=== PATIENT | male | born 1950 | race Caucasian/White ===

== ENCOUNTER 2016-12-09 10:29 | Emergency (ER) | payer MEDICARE, OTHER ==
--- NOTE | 2016-12-09 11:25 | EDM.PDOC ---
ED HPI GENERAL MEDICAL PROBLEM - General Chief Complaint: Cardiovascular Problem Stated Complaint: SENT FROM [facility] Time Seen by Provider: 12/09/16 10:40 - History of Present Illness INITIAL COMMENTS - FREE TEXT/NARRATIVE: 66-year-old male sent over from the [facility] clinic with a one and a half week history of black and tarry stools worsening shortness of breath and lower extremity edema. 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 3 weeks ago the patient had a cardiac stent placed after having a 95% blockage. It is unclear to me what triggered this evaluation however he had an abnormal stress test and subsequent cardiac catheterization. The patient was started on Plavix and aspirin in addition to his Coumadin.. He was catheterized 3 weeks ago today.the patient was started on Coumadin many years ago for what sounds like 6 or 7 lower chest and the blood clots with suspected PEs he had an IVC placed and actually plugged this up to one point. Patient noticed black and tarry stools about one and a half weeks ago. The patient has had problems with anemia in the past probably thought to be do to his chronic Coumadin use. About a week ago the patient has noticed more dyspnea with exertion and worsening lower extremity edema. Patient tried to go into the clinic today but was sent here from the clinic. Patient was due to have an INR done today, this is usually cared for by the anticoagulation clinic at [facility]. Also the patient was due to have an iron infusion today at the clinic. The patient is not having any chest pain or chest pressure at this time no shortness of breath at rest. - Related Data Allergies Allergy/AdvReac Type Severity Reaction Status Date / Time prednisone Allergy Swelling Verified 12/09/16 10:54 shellfish derived Allergy Swelling Verified 12/09/16 10:54 Home Meds: Home Meds Aspirin [Ecotrin] 81 mg PO DAILY 12/09/16 [History] Cetirizine [ZyrTEC] 10 mg PO DAILY 12/09/16 [History] Clopidogrel [Plavix] 75 mg PO DAILY 12/09/16 [History] Fluticasone/Vilanterol [Breo Ellipta 200-25 MCG Inhalation Kit] 1 inh INH DAILY 12/09/16 [History] Gabapentin [Neurontin] 300 mg PO TID 12/09/16 [History] Hydrochlorothiazide 25 mg PO DAILY 12/09/16 [History] Iron Polysaccharides Complex [Ferrex 150] 1 tab PO DAILY 12/09/16 [History] Nitroglycerin [Nitrostat] 0.4 mg PO ASDIRECTED 12/09/16 [History] Pantoprazole Sodium [Protonix] 40 mg PO DAILY 12/09/16 [History] Warfarin [Coumadin] 10 mg PO ASDIRECTED 12/09/16 [History] amLODIPine [Norvasc] 5 mg PO DAILY 12/09/16 [History] atorvaSTATin [Lipitor] 40 mg PO DAILY 12/09/16 [History] oxyCODONE HCl/Acetaminophen [Endocet 5-325 Tablet] 1 tab PO BID 12/09/16 [ History] rOPINIRole [Requip] 2 mg PO DAILY 12/09/16 [History] ED ROS GENERAL - Review of Systems Review Of Systems: See Below Constitutional: Reports: Weakness, Fatigue. Denies: Fever, Chills HEENT: Reports: No Symptoms Respiratory: Reports: Other (He does have some dyspnea with exertion). Denies: Shortness of Breath, Wheezing, Pleuritic Chest Pain, Cough Cardiovascular: Reports: Dyspnea on Exertion, Edema. Denies: Chest Pain, Blood Pressure Problem, Claudication GI/Abdominal: Reports: Melena. Denies: Hematemesis, Nausea, Vomiting : Reports: No Symptoms Neurological: Reports: No Symptoms Psychiatric: Reports: No Symptoms ED EXAM, GENERAL - Physical Exam Exam: See Below Exam Limited By: No Limitations General Appearance: Alert, No Apparent Distress, Other (He does not appear pale or diaphoretic) Eye Exam: Bilateral Eye: Normal Inspection Head: Atraumatic, Normocephalic Neck: Normal Inspection, Supple, Non-Tender, Full Range of Motion. No: Lymphadenopathy (L), Lymphadenopathy (R) Respiratory/Chest: No Respiratory Distress, Lungs Clear, Normal Breath Sounds Cardiovascular: Regular Rate, Rhythm, No Murmur GI/Abdominal: Normal Bowel Sounds, Soft, Other (Patient has some mild suprapubic and left upper quadrant discomfort with palpation) Rectal (Males) Exam: Normal Rectal Tone, Black Stool, Heme + Stool, Other (Top of the prostate not adequately evaluated. He has some enlargement no asymmetry or masses noted) Back Exam: Normal Inspection. No: CVA Tenderness (L), CVA Tenderness (R) Extremities: Normal Inspection, Other (He has some developing pitting edema) Neurological: Alert, Oriented, Normal Cognition Psychiatric: Normal Affect, Normal Mood Course - Vital Signs Last Recorded V/S: Last Vital Signs Temp 36.4 C 12/09/16 10:44 Pulse 77 12/09/16 10:44 Resp 12 12/09/16 10:44 BP 148/71 H 12/09/16 10:44 Pulse Ox 100 12/09/16 10:44 - Orders/Labs/Meds Orders: Active Orders 24 hr Category Date Time Status EKG Documentation Completion [] STAT Care 12/09/16 11:08 Active Hemoccult [Fecal Occult Blood Collection] [RC] Care 12/09/16 11:18 Active ASDIRECTED RED BLOOD CELLS LP [BBK] Stat Lab 12/09/16 11:15 Received TYPE AND SCREEN [BBK] Stat Lab 12/09/16 11:15 Received Pantoprazole [ProTONIX IV] 80 mg Med 12/09/16 11:45 Active Sodium Chloride 0.9% [Normal Saline] 100 ml IV Q10H Transfuse PRBC [Transfuse Red Blood Cells] [COMM] Stat Oth 12/09/16 11:41 Ordered Transfuse RBC [Transfuse Red Blood Cells] [COMM] Stat Ot 12/09/16 12:27 Ordered Medication Orders Pantoprazole Sodium 80 mg/ (Sodium Chloride) 100 mls @ 10 mls/hr IV Q10H [facility] PRN Reason: 8 MG/HR Last Admin: 12/09/16 12:20 Dose: 8 mg/hr, 10 mls/hr Labs: Laboratory Tests 12/09/16 12/09/16 12/09/16 Range/Units 11:15 11:15 11:15 WBC 6.07 (4.23-9.07) K/mm3 RBC 2.74 L (4.63-6.08) M/mm3 Hgb 7.2 L* (13.7-17.5) gm/L Hct 22.7 L (40.1-51.0) % MCV 82.8 (79.0-92.2) fl MCH 26.3 (25.7-32.2) pg MCHC 31.7 L (32.2-35.5) g/dl RDW Std Deviation 53.1 H (35.1-43.9) fL Plt Count 345 H (163-337) K/mm3 MPV 9.5 (9.4-12.3) fl Neutrophils % (Manual) 60 (40-60) % Band Neutrophils % 2 (0-10) % Lymphocytes % (Manual) 31 (20-40) % Atypical Lymphs % 0 % Monocytes % (Manual) 5 (2-10) % Eosinophils % (Manual) 1 (0.8-7.0) % Basophils % (Manual) 1 (0.2-1.2) Platelet Estimate Adequate Polychromasia 1+ slight Hypochromasia 1+ slight Anisocytosis 1+ slight RBC Morph Comment Not Reportable PT 27.2 H (8.0-13.0) SECONDS INR 2.36 APTT 32 (22-36) SECONDS Sodium 132 L (136-145) mEq/L Potassium 3.8 (3.5-5.1) mEq/L Chloride 98 (98-107) mEq/L Carbon Dioxide 24 (21-32) mEq/L Anion Gap 13.8 (5-15) BUN 16 (7-18) mg/dL Creatinine 1.2 (0.7-1.3) mg/dL Est Cr Clr Drug Dosing 69.45 mL/min Estimated GFR (MDRD) > 60 (>60) mL/min BUN/Creatinine Ratio 13.3 L (14-18) Glucose 105 (80-115) mg/dL Calcium 8.9 (8.5-10.1) mg/dL Total Bilirubin 0.4 (0.2-1.0) mg/dL AST 32 (15-37) U/L ALT 32 (16-63) U/L Alkaline Phosphatase 54 (46-116) U/L Troponin I 0.018 (0.00-0.056) ng/mL B-Natriuretic Peptide (0-100) pg/mL Total Protein 7.2 (6.4-8.2) g/dl Albumin 3.4 (3.4-5.0) g/dl Globulin 3.8 gm/dL Albumin/Globulin Ratio 0.9 L (1-2) 05/25/17 Range/Units 11:15 WBC (4.23-9.07) K/mm3 RBC (4.63-6.08) M/mm3 Hgb (13.7-17.5) gm/L Hct (40.1-51.0) % MCV (79.0-92.2) fl MCH (25.7-32.2) pg MCHC (32.2-35.5) g/dl RDW Std Deviation (35.1-43.9) fL Plt Count (163-337) K/mm3 MPV (9.4-12.3) fl Neutrophils % (Manual) (40-60) % Band Neutrophils % (0-10) % Lymphocytes % (Manual) (20-40) % Atypical Lymphs % % Monocytes % (Manual) (2-10) % Eosinophils % (Manual) (0.8-7.0) % Basophils % (Manual) (0.2-1.2) Platelet Estimate Polychromasia Hypochromasia Anisocytosis RBC Morph Comment PT (8.0-13.0) SECONDS INR APTT (22-36) SECONDS Sodium (136-145) mEq/L Potassium (3.5-5.1) mEq/L Chloride (98-107) mEq/L Carbon Dioxide (21-32) mEq/L Anion Gap (5-15) BUN (7-18) mg/dL Creatinine (0.7-1.3) mg/dL Est Cr Clr Drug Dosing mL/min Estimated GFR (MDRD) (>60) mL/min BUN/Creatinine Ratio (14-18) Glucose (80-115) mg/dL Calcium (8.5-10.1) mg/dL Total Bilirubin (0.2-1.0) mg/dL AST (15-37) U/L ALT (16-63) U/L Alkaline Phosphatase (46-116) U/L Troponin I (0.00-0.056) ng/mL B-Natriuretic Peptide 183 H (0-100) pg/mL Total Protein (6.4-8.2) g/dl Albumin (3.4-5.0) g/dl Globulin gm/dL Albumin/Globulin Ratio (1-2) Meds: Medications Generic Name Dose Route Start Last Admin Trade Name Freq PRN Reason Stop Dose Admin Pantoprazole Sodium 80 mg/ 100 mls @ 10 mls/hr 12/09/16 11:45 12/09/16 12:20 Sodium Chloride IV 8 mg/hr Q10H [facility] 10 mls/hr 8 MG/HR Administration Discontinued Medications Generic Name Dose Route Start Last Admin Trade Name Rickey PRN Reason Stop Dose Admin Sodium Chloride Confirm 12/09/16 12:18 Normal Saline Administered 12/09/16 12:19 Dose 1,000 mls @ as directed .ROUTE .STK-MED ONE Pantoprazole Sodium 80 mg 12/09/16 11:36 12/09/16 11:56 Protonix Iv IVPUSH 12/09/16 11:37 80 mg .BOLUS ONE Administration - Re-Assessments/Exams Free Text/Narrative Re-Assessment/Exam: 12/09/16 11:56 The patient's hemoglobin is 7.2 hematocrit 22.7 INR is elevated but within therapeutic ranges from being on Coumadin. Troponin negative BNP slightly elevated. EKG shows a right bundle branch block first degree AV block no acute ST-T wave changes. Patient's Hemoccult was grossly positive. He's been started on Protonix 80 mg as well as Protonix drip. I have called [facility] anticipating transfer. They are busy at this time but will get back to me.case discussed with our hospitalist who believes the patient should be transferred to a higher level of care. 12/09/16 12:[address] Lim, hospitalist at [facility] in [place]. She agrees on the transfusion of one unit the Protonix and accept the patient in transfer. Departure - Departure Time of Disposition: 11:54 Disposition: DC/Tfer to [facility] 02 Clinical Impression: Gastrointestinal hemorrhage, Anemia, Coagulopathy - Discharge Information Referrals: Ariela Linder, CLINICAL OUTCOMES MANAGER [Primary Care Provider] - - My Orders Last 24 Hours: My Active Orders 12/09/16 11:08 EKG Documentation Completion [RC] STAT 12/09/16 11:15 RED BLOOD CELLS LP [BBK] Stat TYPE AND SCREEN [BBK] Stat 12/09/16 11:18 Hemoccult [Fecal Occult Blood Collection] [RC] ASDIRECTED 12/09/16 11:41 Transfuse PRBC [Transfuse Red Blood Cells] [COMM] Stat 12/09/16 11:45 Pantoprazole [ProTONIX IV] 80 mg Sodium Chloride 0.9% [Normal Saline] 100 ml IV Q10H 12/09/16 12:27 Transfuse RBC [Transfuse Red Blood Cells] [COMM] Stat - Assessment/Plan Last 24 Hours: My Active Orders 12/09/16 11:08 EKG Documentation Completion [RC] STAT 12/09/16 11:15 RED BLOOD CELLS LP [BBK] Stat TYPE AND SCREEN [BBK] Stat 12/09/16 11:18 Hemoccult [Fecal Occult Blood Collection] [RC] ASDIRECTED 12/09/16 11:41 Transfuse PRBC [Transfuse Red Blood Cells] [COMM] Stat 12/09/16 11:45 Pantoprazole [ProTONIX IV] 80 mg Sodium Chloride 0.9% [Normal Saline] 100 ml IV Q10H 12/09/16 12:27 Transfuse RBC [Transfuse Red Blood Cells] [COMM] Stat
[2016-12-09] MEDS ORDERED: Pantoprazole 40 MG Vial IVPUSH ONE (11:36)
[2016-12-09] MEDS ORDERED: Pantoprazole 80 MG in Sodium Chloride 0.9% 100 ML IV SCH (11:45)
[2016-12-09] MEDS ORDERED: Sodium Chloride 0.9% 1,000 ML ONE (12:18)
--- NOTE | 2016-12-09 12:26 | CR ---
Chest: Portable view of the chest was obtained. Comparison: Previous chest x-ray of 11/25/12. Chronic blunting of the right lateral costophrenic angle is seen. Several old right-sided rib fractures are seen. No acute infiltrates are seen. Heart size and mediastinum are normal. Impression: 1. Several old healed right-sided rib fractures. Pleural thickening within the right lateral costophrenic angle which appears to be chronic. 2. Nothing acute is appreciated on portable chest x-ray. Diagnostic code #2
[2016-12-09] MEDS ORDERED: Furosemide 20 MG/2 ML VIAL IVPUSH ONE (12:43)
[2016-12-09] MEDS ORDERED: Potassium Chloride 10 MEQ in Premix Bag 1 BAG IV ONE (12:45)
[2016-12-09 13:51] VITALS: BP 174/62
== END 2016-12-09 13:52 ==
LOC: JD.ED 10:29
DX: K92.2 Gastrointestinal hemorrhage, unspecified (principal); D64.9 Anemia, unspecified; D68.9 Coagulation defect, unspecified; Z79.82 Long term (current) use of aspirin; Z79.899 Other long term (current) drug therapy; Z79.01 Long term (current) use of anticoagulants; Z91.013 Allergy to seafood; Z88.8 Allergy status to other drugs, medicaments and biological substances
CPT/HCPCS: 36415; 36430; 71010; 80053; 82270; 83880; 84484; 85025; 85610; 85730; 86850; 86900; 86901; 86922; 93005; 96360; 96365; 96368; 96375; 96376; 99285; A9270; C9113; J3480; J7030; J7040; P9016; 99284

== ENCOUNTER 2017-01-22 21:05 | Emergency (ER) | payer MEDICARE, OTHER ==
--- NOTE | 2017-01-22 21:42 | EDM.PDOC ---
ED HPI GENERAL MEDICAL PROBLEM - General Chief Complaint: Syncope Stated Complaint: [facility] Time Seen by Provider: 01/22/17 21:10 Source of Information: Reports: Patient History Limitations: Reports: No Limitations - History of Present Illness INITIAL COMMENTS - FREE TEXT/NARRATIVE: This is a 66-year-old male. He was in the garage this afternoon sitting and having a few beers. He got up and walked up 3 steps and reached up to close the garage door and he passed out. He states he doesn't remember anything he just passed out. He had no nausea when this occurred no sweating no flushing no chest pain. When he woke up he says there was no lag time and he knew exactly what had happened and he told his he felt okay. When EMS arrived he was alert and oriented, he was on 94% oxygen by room air blood pressure is 108/69. He denies any headache he denies any neck pain or back pain. He does have some skin tears on his upper extremities and he has a large hematoma in his left lower extremity lateral calf. He says he feels fine right now. He does have a history of high blood pressure he is taking a beta lydia. He also has a history of blood clots in his legs and he is on Coumadin and Plavix. His last INR was yesterday and it was 4 something. He does complain of some right lateral rib pain but denies any other acute symptoms of his upper or lower extremities. He does have a history of feeling very lightheaded sometimes when he stands up but no recent syncope like today. Bilateral Hand Pain Score (Numeric/FACES): 4 - Related Data Allergies Allergy/AdvReac Type Severity Reaction Status Date / Time prednisone Allergy Swelling Verified 12/09/16 10:54 shellfish derived Allergy Swelling Verified 12/09/16 10:54 Home Meds: Home Meds Cetirizine [ZyrTEC] 10 mg PO DAILY 12/09/16 [History] Clopidogrel [Plavix] 75 mg PO DAILY 12/09/16 [History] Fluticasone/Vilanterol [Breo Ellipta 200-25 MCG Inhalation Kit] 1 puff INH DAILY 12/09/16 [History] Gabapentin [Neurontin] 300 mg PO TID 12/09/16 [History] Iron Polysaccharides Complex [Ferrex 150] 1 tab PO BID 12/09/16 [History] Nitroglycerin [Nitrostat] 0.4 mg PO ASDIRECTED 12/09/16 [History] Pantoprazole Sodium [Protonix] 40 mg PO DAILY 12/09/16 [History] Warfarin [Coumadin] 10 mg PO ASDIRECTED 12/09/16 [History] amLODIPine [Norvasc] 5 mg PO DAILY 12/09/16 [History] atorvaSTATin [Lipitor] 40 mg PO DAILY 12/09/16 [History] Acetaminophen/oxyCODONE [Percocet 325-5 MG] 1 tab PO BID 01/22/17 [History] Furosemide [Lasix] 40 mg PO DAILY 01/22/17 [History] Ipratropium/Albuterol Sulfate [Combivent Respimat Inhal [place]] 1 puff INH TID PRN 01/22/17 [History] Metoprolol Succinate [Toprol XL] 50 mg PO DAILY 01/22/17 [History] Past Medical History Cardiovascular History: Reports: CAD, Hypertension Other Cardiovascular History: IVC filter since 2005 Respiratory History: Reports: SOB Gastrointestinal History: Reports: GERD, Hemorrhoids - Past Surgical History HEENT Surgical History: Reports: Tonsillectomy Other Cardiovascular Surgeries/Procedures: cardiac stent x1 GI Surgical History: Reports: Colonoscopy Musculoskeletal Surgical History: Reports: Joint Replacement Other Musculoskeletal Surgeries/Procedures:: left hip Social & Family History - Tobacco Use Smoking Status *Q: Current Every Day Smoker Years of Tobacco use: 30 Packs/Tins Daily: 1 - Caffeine Use Caffeine Use: Reports: Coffee - Alcohol Use Days Per Week of Alcohol Use: 7 Number of Drinks Per Day: 2 Total Drinks Per Week: 14 - Recreational Drug Use Recreational Drug Use: No ED ROS GENERAL - Review of Systems Review Of Systems: See Below Constitutional: Denies: Fever, Chills HEENT: Reports: No Symptoms Respiratory: Reports: No Symptoms Cardiovascular: Denies: Chest Pain Endocrine: Reports: No Symptoms GI/Abdominal: Denies: Abdominal Pain, Nausea, Vomiting : Reports: No Symptoms Musculoskeletal: Reports: Other (As per history of present illness) Skin: Reports: Other (As per history of present illness) Neurological: Reports: Syncope. Denies: Confusion, Dizziness, Headache, Trouble Speaking, Weakness Psychiatric: Reports: No Symptoms Hematologic/Lymphatic: Reports: No Symptoms Immunologic: Reports: No Symptoms - Physical Exam Exam: See Below Exam Limited By: No Limitations General Appearance: Alert, WD/WN, No Apparent Distress Ears: Normal External Exam, Normal Canal, Other (Only partial TMs can be seen due to cerumen and they appear to be normal) Nose: Normal Inspection Throat/Mouth: Normal Inspection, Normal Lips, Normal Voice, No Airway Compromise Head Exam: Atraumatic, Normocephalic, Other (There are no abrasions or hematomas to the scalp noted and he denies any pain on palpation of the scalp) Neck: Normal Inspection, Supple, Non-Tender, Full Range of Motion Respiratory/Chest: No Respiratory Distress, Lungs Clear, Other (He has tenderness around rib #5 and 6 laterally on palpation but I do not feel any crepitus at this time, the left ribs are nontender) Cardiovascular: Regular Rate, Rhythm, No Murmur GI/Abdominal: Soft, Non-Tender Neuro Exam (Abbreviated): Alert, Oriented, No Motor/Sensory Deficits Back Exam: Normal Inspection, Full Range of Motion, Other (Patient denies any thoracic or lumbar tenderness on palpation or movement) Extremities: Normal Range of Motion, Other (His right upper extremity has a skin abrasion tear on the dorsal right hand, the left upper extremity has a skin tear on the dorsal of the left hand and also contusions on his forearm and elbow, the lower extremities on the right is atraumatic the one on the left has a large hematoma about the size of a small range on the lateral calf area, pulses are intact distally to the hematoma, he denies any shoulder injury he denies any hip knee ankle or foot pain with movement) Psychiatric: Normal Affect, Normal Mood Skin Exam: Warm, Dry EKG INTERPRETATION EKG Date: 01/22/17 Time: 09:46 Rhythm: NSR EKG Interpretation Comments: 1 degree AV block, 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, no acute ST or T-wave changes and no ischemic changes are noted Course - Vital Signs Last Recorded V/S: Last Vital Signs Temp 97.4 F 01/22/17 21:10 Pulse 73 01/22/17 21:10 Resp 20 01/22/17 21:10 BP 113/69 01/22/17 21:10 Pulse Ox 96 01/22/17 21:10 - Orders/Labs/Meds Orders: Active Orders 24 hr Category Date Time Status EKG 12 Lead [EKG Documentation Completion] [RC] STAT Care 01/22/17 21:34 Active Ribs 2V w Chest Rt [CR] Stat Exams 01/22/17 21:34 Taken Labs: Laboratory Tests 01/22/17 01/22/17 01/22/17 Range/Units 21:45 21:45 21:45 WBC 6.80 (4.23-9.07) K/mm3 RBC 4.15 L (4.63-6.08) M/mm3 Hgb 11.9 L (13.7-17.5) gm/L Hct 36.0 L (40.1-51.0) % MCV 86.7 (79.0-92.2) fl MCH 28.7 (25.7-32.2) pg MCHC 33.1 (32.2-35.5) g/dl RDW Std Deviation 74.0 H (35.1-43.9) fL Plt Count 252 (163-337) K/mm3 MPV 10.3 (9.4-12.3) fl Neut % (Auto) 59.0 (34.0-67.9) % Lymph % (Auto) 27.6 (21.8-53.1) % Dixon % (Auto) 9.9 (5.3-12.2) % Eos % (Auto) 2.5 (0.8-7.0) Baso % (Auto) 0.9 (0.1-1.2) % Neut # (Auto) 4.01 (1.78-5.38) K/mm3 Lymph # (Auto) 1.88 (1.32-3.57) K/mm3 Dixon # (Auto) 0.67 (0.30-0.82) K/mm3 Eos # (Auto) 0.17 (0.04-0.54) K/mm3 Baso # (Auto) 0.06 (0.01-0.08) K/mm3 PT 48.0 H (8.0-13.0) SECONDS INR 4.03 Sodium 136 (136-145) mEq/L Potassium 3.5 (3.5-5.1) mEq/L Chloride 101 (98-107) mEq/L Carbon Dioxide 19 L (21-32) mEq/L Anion Gap 19.5 H (5-15) BUN 15 (7-18) mg/dL Creatinine 1.6 H (0.7-1.3) mg/dL Est Cr Clr Drug Dosing TNP Estimated GFR (MDRD) 43 (>60) mL/min BUN/Creatinine Ratio 9.4 L (14-18) Glucose 97 (80-115) mg/dL Calcium 8.7 (8.5-10.1) mg/dL Total Bilirubin 0.3 (0.2-1.0) mg/dL AST 91 H (15-37) U/L ALT 67 H (16-63) U/L Alkaline Phosphatase 49 (46-116) U/L Troponin I < 0.017 (0.00-0.056) ng/mL Total Protein 6.8 (6.4-8.2) g/dl Albumin 3.5 (3.4-5.0) g/dl Globulin 3.3 gm/dL Albumin/Globulin Ratio 1.1 (1-2) - Re-Assessments/Exams Free Text/Narrative Re-Assessment/Exam: 01/22/17 22:58 I spoke to the patient regarding his blood work INR is renal insufficiency his mildly elevated liver enzymes and his rib fractures. Departure - Departure Time of Disposition: 23:00 Disposition: Home, Self-Care 01 Condition: Fair Clinical Impression: Multiple skin tears, Elevated liver enzymes, Elevated INR, Multiple bruises, Syncope and collapse, Orthostatic hypotension Right rib fracture Qualifiers: Encounter type: initial encounter Rib fracture type: multiple ribs Fracture type: closed Qualified Code(s): S22.41XA - Multiple fractures of ribs, right side, initial encounter for closed fracture Hematoma of left lower extremity Qualifiers: Encounter type: initial encounter Qualified Code(s): S80.12XA - Contusion of left lower leg, initial encounter - Discharge Information Referrals: Ariela Linder, FUNERAL HOME DIRECTOR [Primary Care Provider] - Forms: ED Department Discharge Additional Instructions: Continue to ice down the hematoma on your left lower leg as well as the various bruises for the next 48 hours, keep the skin tears clean and dry and covered until they develop a scab, continue regular medications, gentle activity due to the right rib fractures, remember that when you get up from sitting take a moment to stand still before you decide to walk in case you have another dizzy or syncopal episode, follow-up with your family physician this week and return to the ER if needed - My Orders Last 24 Hours: My Active Orders 01/22/17 21:34 EKG 12 Lead [EKG Documentation Completion] [RC] STAT Ribs 2V w Chest Rt [CR] Stat - Assessment/Plan Last 24 Hours: My Active Orders 01/22/17 21:34 EKG 12 Lead [EKG Documentation Completion] [RC] STAT Ribs 2V w Chest Rt [CR] Stat
[2017-01-23 00:27] VITALS: BP 141/88
--- NOTE | 2017-01-24 08:15 | CR ---
Chest and right ribs: Frontal view of the chest was obtained as well as three views of the right ribs. Comparison: Previous chest x-ray of 12/09/16. Multiple right-sided rib fractures are seen which appear to be old and appears stable from previous exam. Chronic pleural thickening is seen along the right lateral chest wall and right lateral costophrenic angle. No acute infiltrates are seen. Heart size and mediastinum are within normal limits. Mild scoliosis is present within the spine. Impression: 1. Multiple old appearing right-sided rib fractures. Associated pleural thickening is seen which is chronic. 2. Nothing acute is appreciated within the right ribs. 3. Nothing acute is seen on accompanying chest x-ray. Diagnostic code #2
== END 2017-01-22 23:25 | disposition home or self-care (01) ==
LOC: JD.ED 21:05 → SUPCPDRO 21:05 → JD.ED 23:25
DX: S22.41XA Multiple fractures of ribs, right side, initial encounter for closed fracture (principal); S61.412A Laceration without foreign body of left hand, initial encounter; S80.12XA Contusion of left lower leg, initial encounter; S50.12XA Contusion of left forearm, initial encounter; S50.02XA Contusion of left elbow, initial encounter; I95.1 Orthostatic hypotension; R79.89 Other specified abnormal findings of blood chemistry; R79.1 Abnormal coagulation profile; I10 Essential (primary) hypertension; F17.210 Nicotine dependence, cigarettes, uncomplicated; K21.9 Gastro-esophageal reflux disease without esophagitis; I25.10 Atherosclerotic heart disease of native coronary artery without angina pectoris; Z91.013 Allergy to seafood; Z88.8 Allergy status to other drugs, medicaments and biological substances; Z79.899 Other long term (current) drug therapy; Z79.01 Long term (current) use of anticoagulants; Z98.890 Other specified postprocedural states; S30.1XXA Contusion of abdominal wall, initial encounter; W10.9XXA Fall (on) (from) unspecified stairs and steps, initial encounter; Y92.59 Other trade areas as the place of occurrence of the external cause
CPT/HCPCS: 36415; 71101-26-RT; 71101-RT; 80053; 84484; 85025; 85610; 93005; 99284; 99285-25

== ENCOUNTER 2017-02-15 14:42 | Emergency (ER) | payer MEDICARE, OTHER ==
[2017-02-15 15:06] VITALS: BP 164/74
[2017-02-15] MEDS ORDERED: Sodium Chloride 0.9% 10 ML Syringe FLUSH PRN (15:21)
--- NOTE | 2017-02-15 15:58 | EDM.PDOC ---
ED HPI GENERAL MEDICAL PROBLEM - General Chief Complaint: Cardiovascular Problem Stated Complaint: SENT FROM [facility] FOR HEART Time Seen by Provider: 02/15/17 15:06 Source of Information: Reports: Patient, RN Notes Reviewed - History of Present Illness INITIAL COMMENTS - FREE TEXT/NARRATIVE: 66 year old male sent over from clinic to be sent to [facility] for pacemaker. He has been having frequent dizzy spells for several months or more , passed out a few weeks ago with resultant fractured ribs, huge hematoma L lower leg, still not completely resolved. He has hx of Htn, CAD, had a stent placed several months ago, on plavix and coumadin in addition to other meds. He has been having dizzy spells almost daily, usually can sit or lie down until it passes. Last night he passed out walking in his garden, no injury. He passed out again 2:30 this morning going to the bathroom. Very little warning. He states he would start to feel a bit light headed, than would wake up on the ground or on the floor. No chest pain recently. Occasional dyspnea. No recent abd pain, nausea, vomting or other unusual sx. - Related Data Allergies Allergy/AdvReac Type Severity Reaction Status Date / Time prednisone Allergy Swelling Verified 02/15/17 15:06 shellfish derived Allergy Swelling Verified 02/15/17 15:06 Home Meds: Home Meds Cetirizine [ZyrTEC] 10 mg PO DAILY 12/09/16 [History] Clopidogrel [Plavix] 75 mg PO DAILY 12/09/16 [History] Fluticasone/Vilanterol [Breo Ellipta 200-25 MCG Inhalation Kit] 1 puff INH DAILY 12/09/16 [History] Gabapentin [Neurontin] 300 mg PO BEDTIME 12/09/16 [History] Nitroglycerin [Nitrostat] 0.4 mg PO ASDIRECTED 12/09/16 [History] Pantoprazole Sodium [Protonix] 40 mg PO DAILY 12/09/16 [History] Warfarin [Coumadin] 7.5 mg PO ASDIRECTED 12/09/16 [History] Acetaminophen/oxyCODONE [Percocet 325-5 MG] 1 tab PO BID 01/22/17 [History] Furosemide [Lasix] 20 mg PO DAILY 01/22/17 [History] Ipratropium/Albuterol Sulfate [Combivent Respimat Inhal [place]] 1 puff INH TID [History] Metoprolol Succinate [Toprol XL] 50 mg PO DAILY 01/22/17 [History] Past Medical History Cardiovascular History: Reports: CAD, Hypertension Other Cardiovascular History: IVC filter since 2005 Respiratory History: Reports: SOB Gastrointestinal History: Reports: GERD, Hemorrhoids - Past Surgical History HEENT Surgical History: Reports: Tonsillectomy Other Cardiovascular Surgeries/Procedures: cardiac stent x1 GI Surgical History: Reports: Colonoscopy Musculoskeletal Surgical History: Reports: Joint Replacement Other Musculoskeletal Surgeries/Procedures:: left hip Social & Family History - Tobacco Use Smoking Status *Q: Unknown Ever Smoked Years of Tobacco use: 30 Packs/Tins Daily: 1 - Caffeine Use Caffeine Use: Reports: Coffee - Alcohol Use Days Per Week of Alcohol Use: 7 Number of Drinks Per Day: 2 Total Drinks Per Week: 14 - Recreational Drug Use Recreational Drug Use: No ED ROS GENERAL - Review of Systems Review Of Systems: See Below Constitutional: Denies: Fever, Chills HEENT: Denies: Throat Pain Respiratory: Reports: Shortness of Breath. Denies: Pleuritic Chest Pain, Cough Cardiovascular: Denies: Chest Pain GI/Abdominal: Denies: Abdominal Pain, Nausea, Vomiting Musculoskeletal: Reports: Leg Pain (still having pain area of large hematoma L lower ant leg. ). Denies: Neck Pain, Shoulder Pain Skin: Reports: Bruising (multiple areas of bruising) Neurological: Reports: Dizziness (frequent). Denies: Tingling, Trouble Speaking , Difficulty Walking, Weakness ED EXAM, GENERAL - Physical Exam Exam: See Below General Appearance: Alert, No Apparent Distress Eye Exam: Bilateral Eye: PERRL Throat/Mouth: Normal Inspection, Normal Oropharynx Head: Atraumatic. No: Facial Swelling Neck: Supple, Full Range of Motion Respiratory/Chest: No Respiratory Distress, Lungs Clear, Normal Breath Sounds Cardiovascular: Regular Rate, Rhythm GI/Abdominal: Soft, Non-Tender. No: Guarding Back Exam: No: CVA Tenderness (L), CVA Tenderness (R), Vertebral Tenderness Extremities: Leg Pain (large hematoma L lower ant leg. ) Neurological: No Motor/Sensory Deficits Skin Exam: Warm, Dry, Normal Color, Ecchymosis (multiple areas of bruising, especially R back, R arm, L lower ant leg) Course - Vital Signs Last Recorded V/S: Last Vital Signs Temp 98.5 F 02/15/17 15:03 Pulse 63 02/15/17 15:03 Resp 18 02/15/17 15:03 BP 164/74 H 02/15/17 15:03 Pulse Ox 100 02/15/17 15:03 - Orders/Labs/Meds Orders: Active Orders 24 hr Category Date Time Status EKG 12 Lead [EKG Documentation Completion] [RC] STAT Care 02/15/17 15:20 Active Peripheral IV Care [RC] . DIRECTED Care 02/15/17 15:21 Active Chest 1V Frontal [CR] Stat Exams 02/15/17 15:21 Taken Sodium Chloride 0.9% [Saline Flush] Med 02/15/17 15:21 Active 10 ml FLUSH ASDIRECTED PRN Peripheral IV Insertion Adult [OM.PC] Stat Oth 02/15/17 15:20 Ordered Medication Orders Sodium Chloride (Saline Flush) 10 ml FLUSH ASDIRECTED PRN PRN Reason: Keep Vein Open Last Admin: 02/15/17 15:20 Dose: 10 ml Labs: Laboratory Tests 02/15/17 02/15/17 02/15/17 Range/Units 15:34 15:34 15:34 WBC 7.86 (4.23-9.07) K/mm3 RBC 4.41 L (4.63-6.08) M/mm3 Hgb 13.1 L (13.7-17.5) gm/L Hct 39.9 L (40.1-51.0) % MCV 90.5 (79.0-92.2) fl MCH 29.7 (25.7-32.2) pg MCHC 32.8 (32.2-35.5) g/dl RDW Std Deviation 72.4 H (35.1-43.9) fL Plt Count 330 (163-337) K/mm3 MPV 10.3 (9.4-12.3) fl Neut % (Auto) 62.6 (34.0-67.9) % Lymph % (Auto) 26.6 (21.8-53.1) % [place] % (Auto) 8.4 (5.3-12.2) % Eos % (Auto) 1.3 (0.8-7.0) Baso % (Auto) 0.8 (0.1-1.2) % Neut # (Auto) 4.93 (1.78-5.38) K/mm3 Lymph # (Auto) 2.09 (1.32-3.57) K/mm3 [place] # (Auto) 0.66 (0.30-0.82) K/mm3 Eos # (Auto) 0.10 (0.04-0.54) K/mm3 Baso # (Auto) 0.06 (0.01-0.08) K/mm3 PT 35.0 H (8.0-13.0) SECONDS INR 2.99 Sodium 138 (136-145) mEq/L Potassium 3.8 (3.5-5.1) mEq/L Chloride 103 (98-107) mEq/L Carbon Dioxide 25 (21-32) mEq/L Anion Gap 13.8 (5-15) BUN 11 (7-18) mg/dL Creatinine 1.4 H (0.7-1.3) mg/dL Est Cr Clr Drug Dosing TNP Estimated GFR (MDRD) 51 (>60) mL/min BUN/Creatinine Ratio 7.9 L (14-18) Glucose 121 H (80-115) mg/dL Calcium 9.4 (8.5-10.1) mg/dL Total Bilirubin 0.5 (0.2-1.0) mg/dL AST 39 H (15-37) U/L ALT 41 (16-63) U/L Alkaline Phosphatase 77 (46-116) U/L B-Natriuretic Peptide (0-100) pg/mL Total Protein 7.5 (6.4-8.2) g/dl Albumin 3.5 (3.4-5.0) g/dl Globulin 4.0 gm/dL Albumin/Globulin Ratio 0.9 L (1-2) 02/15/17 Range/Units 15:34 WBC (4.23-9.07) K/mm3 RBC (4.63-6.08) M/mm3 Hgb (13.7-17.5) gm/L Hct (40.1-51.0) % MCV (79.0-92.2) fl MCH (25.7-32.2) pg MCHC (32.2-35.5) g/dl RDW Std Deviation (35.1-43.9) fL Plt Count (163-337) K/mm3 MPV (9.4-12.3) fl Neut % (Auto) (34.0-67.9) % Lymph % (Auto) (21.8-53.1) % [place] % (Auto) (5.3-12.2) % Eos % (Auto) (0.8-7.0) Baso % (Auto) (0.1-1.2) % Neut # (Auto) (1.78-5.38) K/mm3 Lymph # (Auto) (1.32-3.57) K/mm3 [place] # (Auto) (0.30-0.82) K/mm3 Eos # (Auto) (0.04-0.54) K/mm3 Baso # (Auto) (0.01-0.08) K/mm3 PT (8.0-13.0) SECONDS INR Sodium (136-145) mEq/L Potassium (3.5-5.1) mEq/L Chloride (98-107) mEq/L Carbon Dioxide (21-32) mEq/L Anion Gap (5-15) BUN (7-18) mg/dL Creatinine (0.7-1.3) mg/dL Est Cr Clr Drug Dosing Estimated GFR (MDRD) (>60) mL/min BUN/Creatinine Ratio (14-18) Glucose (80-115) mg/dL Calcium (8.5-10.1) mg/dL Total Bilirubin (0.2-1.0) mg/dL AST (15-37) U/L ALT (16-63) U/L Alkaline Phosphatase (46-116) U/L B-Natriuretic Peptide 436 H (0-100) pg/mL Total Protein (6.4-8.2) g/dl Albumin (3.4-5.0) g/dl Globulin gm/dL Albumin/Globulin Ratio (1-2) Meds: Medications Generic Name Dose Route Start Last Admin Trade Name Freq PRN Reason Stop Dose Admin Sodium Chloride 10 ml 02/15/17 15:21 02/15/17 15:20 Saline Flush FLUSH 10 ml ASDIRECTED PRN Administration Keep Vein Open - Re-Assessments/Exams Free Text/Narrative Re-Assessment/Exam: 02/15/17 17:36. NSR here in the ED, no significant pauses, EKG does show first degree block and RBBB. He needs a pacemaker. He did have an appt. to see Dr Washington tomorrow. He has been notified. Requesting patient be admitted to Hospitalist this afternoon/evening. Will place pacemaker tomorrow. Dr Bustamante, Hospitalist accepting Phys. Departure - Departure Time of Disposition: 16:30 Disposition: DC/Tfer to Acute Hospital 02 Reason for Transfer *Q: Other Condition: Serious Clinical Impression: Sick sinus syndrome Forms: ED Department Discharge - My Orders Last 24 Hours: My Active Orders 02/15/17 15:20 EKG 12 Lead [EKG Documentation Completion] [RC] STAT Peripheral IV Insertion Adult [OM.PC] Stat 02/15/17 15:21 Peripheral IV Care [RC] . DIRECTED Chest 1V Frontal [CR] Stat Sodium Chloride 0.9% [Saline Flush] 10 ml FLUSH ASDIRECTED PRN - Assessment/Plan Last 24 Hours: My Active Orders 02/15/17 15:20 EKG 12 Lead [EKG Documentation Completion] [RC] STAT Peripheral IV Insertion Adult [OM.PC] Stat 02/15/17 15:21 Peripheral IV Care [RC] . DIRECTED Chest 1V Frontal [CR] Stat Sodium Chloride 0.9% [Saline Flush] 10 ml FLUSH ASDIRECTED PRN
--- NOTE | 2017-02-15 18:05 | CR ---
Chest: Portable view of the chest was obtained. Comparison: Previous chest x-ray of 01/22/17. Blunting of the lateral costophrenic angles are seen which appears chronic. Stable right-sided rib fractures are seen. Lungs are clear with no acute infiltrates. Heart size and mediastinum are within normal limits. Slight scoliosis is present within the spine. Impression: 1. Stable findings as described above. Nothing acute is appreciated on portable chest x-ray. Diagnostic code #2
== END 2017-02-15 17:08 ==
LOC: JD.ED 14:42 → SUPCPDRO 14:42 → JD.ED 17:08
DX: I49.5 Sick sinus syndrome (principal); I10 Essential (primary) hypertension; I25.10 Atherosclerotic heart disease of native coronary artery without angina pectoris; K21.9 Gastro-esophageal reflux disease without esophagitis; Z98.890 Other specified postprocedural states; Z95.5 Presence of coronary angioplasty implant and graft; Z96.649 Presence of unspecified artificial hip joint; Z79.02 Long term (current) use of antithrombotics/antiplatelets; Z79.899 Other long term (current) drug therapy; Z88.8 Allergy status to other drugs, medicaments and biological substances; Z91.013 Allergy to seafood; R06.02 Shortness of breath
CPT/HCPCS: 36415; 71010; 80053; 83880; 85025; 85610; 93005; 99285; J7050; 99284

== ENCOUNTER 2019-06-18 15:58 | Emergency (ER) | payer MEDICARE, OTHER ==
[2019-06-18] MEDS ORDERED: Ondansetron 4 MG/2 ML SDV IVPUSH ONE (16:29)
[2019-06-18] MEDS ORDERED: HYDROmorphone 0.5 MG/0.5 ML Syringe IVPUSH ONE ×2 (16:29→21:22)
[2019-06-18] MEDS ORDERED: Sodium Chloride 0.9% 1,000 ML IV SCH (16:30)
--- NOTE | 2019-06-18 16:33 | EDM.PDOC ---
ED HPI GENERAL MEDICAL PROBLEM - General Chief Complaint: Abdominal Pain Stated Complaint: ABDOMINAL PAIN AND BLOATING Time Seen by Provider: 06/18/19 16:14 Source of Information: Reports: Patient History Limitations: Reports: No Limitations - History of Present Illness INITIAL COMMENTS - FREE TEXT/NARRATIVE: patient is a 69-year-old male who presents with complaints of sharp, stabbing right upper quadrant and epigastric pain and nausea. He states that the symptoms have been occurring intermittently since 2016 when he had a "reaction to lasix". This episode of pain began last night. He states that when he went to bed the pain was there but was gone when he woke up this morning. Pain returned at 1230 today which was aprox 1 hour after he ate lunch. He states that he is nauseous however he has not had any vomiting. Denies diarrhea and did have a normal bowel movement today. He has a hx of recurrent blood clots, is on coumadin, and has an IVC filter in place. 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 There were no acute findings found in either of these studies. Pt had blood work done on 06/12/19 at [facility]. At that time his d-dimer was negative at 0.38. Pt also states that he has a hx of GI bleeds, gastritis, a hiatal hernia and has had numerous EGDs done over the last 5 years. He is taking protonix 40mg daily. He does smoke and drinks about 4 beers daily. He denies hematemesis or tarry stools at this time. Abdominal Pain Score (Numeric/FACES): 10 - Related Data Allergies Allergy/AdvReac Type Severity Reaction Status Date / Time furosemide [From Lasix] Allergy Blisters Verified 06/18/19 17:47 prednisone Allergy Swelling Verified 06/18/19 16:17 shellfish derived Allergy Swelling Verified 06/18/19 16:17 Home Meds: Home Meds Gabapentin [Neurontin] 300 mg PO BEDTIME 12/09/16 [History] Nitroglycerin [Nitrostat] 0.4 mg SL ASDIRECTED PRN 12/09/16 [History] Pantoprazole Sodium [Protonix] 40 mg PO DAILY 12/09/16 [History] Warfarin [Coumadin] 0 mg PO ASDIRECTED 12/09/16 [History] Acetaminophen/oxyCODONE [Percocet 325-5 MG] 5 - 325 tab PO BEDTIME 01/22/17 [ History] Metoprolol Succinate [Toprol XL] 50 mg PO BID 01/22/17 [History] Bumetanide 0.5 mg pe PO DAILY 06/18/19 [History] Fenofibrate Nanocrystallized [Fenofibrate] 145 mg pe PO DAILY 06/18/19 [History] Potassium Chloride 10 meq PO DAILY 06/18/19 [History] amLODIPine [Norvasc] 5 mg PO DAILY 06/18/19 [History] Past Medical History Cardiovascular History: Reports: CAD, Hypertension Other Cardiovascular History: IVC filter since 2005 Respiratory History: Reports: SOB Gastrointestinal History: Reports: GERD, Hemorrhoids - Past Surgical History HEENT Surgical History: Reports: Tonsillectomy Other Cardiovascular Surgeries/Procedures: cardiac stent x1 GI Surgical History: Reports: Colonoscopy Musculoskeletal Surgical History: Reports: Joint Replacement Other Musculoskeletal Surgeries/Procedures:: left hip Social & Family History - Caffeine Use Caffeine Use: Reports: Coffee ED ROS GENERAL - Review of Systems Review Of Systems: See Below Constitutional: Reports: No Symptoms. Denies: Fever, Chills HEENT: Reports: No Symptoms Respiratory: Reports: No Symptoms Cardiovascular: Reports: No Symptoms Endocrine: Reports: No Symptoms GI/Abdominal: Reports: Abdominal Pain (LUQ and epigastric), Nausea. Denies: Black Stool, Bloody Stool, Diarrhea, Vomiting : Reports: No Symptoms Musculoskeletal: Reports: No Symptoms Skin: Reports: No Symptoms Neurological: Reports: No Symptoms Psychiatric: Reports: No Symptoms Hematologic/Lymphatic: Reports: No Symptoms Immunologic: Reports: No Symptoms ED EXAM, GI/ABD - Physical Exam Exam: See Below Exam Limited By: No Limitations General Appearance: Alert, WD/WN, Mild Distress Respiratory/Chest: No Respiratory Distress, Lungs Clear, Normal Breath Sounds, No Accessory Muscle Use, Chest Non-Tender Cardiovascular: Normal Peripheral Pulses, Regular Rate, Rhythm, No Edema, No Murmur GI/Abdominal Exam: Normal Bowel Sounds, No Distention, Tender (LUQ and epigastric) Neurological: Alert, Oriented, Normal Cognition Psychiatric: Normal Affect, Normal Mood Skin Exam: Warm, Dry, Intact, Normal Color, No Rash Course - Vital Signs Text/Narrative:: patient is a 69-year-old male who presents with complaints of left upper quadrant and epigastric pain. He states the pain has been coming and going intermittently however this pain is more severe than he has had in the past. He is concerned that his thrombosis in his liver may have moved. I did speak to Dr. Hoffmann his states that the lab work he completed on the showed that his d-dimer was 0.34. An abdominal ultrasound and an abdominal arterial ultrasound were completed here on 15 June and showed no evidence of a clot. Hepatic portal vein was patent on those exams; therefore I don't feel that pain is likely linked to a thrombosis. Patient did verbalize at the onset of pain today occurred after he ate which may indicate a gastric etiology. He does have a significant history of gastritis, as well as a hiatal hernia. I did administer NS at 150 ml/hr , Zofran 4mg IV as well as 0.5 mg of Dilaudid which did improve his pain some. He was also given a GI cocktail which he states did further help the pain. After the GI cocktail he described the pain as dull ache instead of the sharp stabbing pain that was. Lab results are currently pending. I will await the results of these prior to ordering imaging. Last Recorded V/S: Last Vital Signs Temp 98.3 F 06/18/19 16:15 Pulse 98 06/18/19 16:15 Resp 16 06/18/19 16:15 BP 163/93 H 06/18/19 16:15 Pulse Ox 97 06/18/19 16:15 - Orders/Labs/Meds Orders: Active Orders 24 hr Category Date Time Status Lactated Ringers [Ringers, Lactated] 1,000 ml Med 06/18/19 21:30 Active IV ASDIRECTED Lactated Ringers [Ringers, Lactated] 1,000 ml Med 06/19/19 07:00 Active IV ASDIRECTED Sodium Chloride 0.9% [Normal Saline] 1,000 ml Med 06/18/19 16:30 Active IV ASDIRECTED Medication Orders Sodium Chloride (Normal Saline) 1,000 mls @ 150 mls/hr IV ASDIRECTED KENDALL Last Admin: 06/18/19 17:03 Dose: 150 mls/hr Lactated Ringer's (Ringers, Lactated) 1,000 mls @ 150 mls/hr IV ASDIRECTED KENDALL Last Admin: 06/19/19 00:12 Dose: 150 mls/hr Lactated Ringer's (Ringers, Lactated) 1,000 mls @ 150 mls/hr IV ASDIRECTED KENDALL Last Admin: 06/19/19 07:46 Dose: 150 mls/hr Labs: Laboratory Tests 06/18/19 06/18/19 06/18/19 Range/Units 16:54 16:54 16:54 WBC 10.27 H (4.23-9.07) K/mm3 RBC 4.66 (4.63-6.08) M/mm3 Hgb 14.3 (13.7-17.5) gm/dl Hct 42.3 (40.1-51.0) % MCV 90.8 (79.0-92.2) fl MCH 30.7 (25.7-32.2) pg MCHC 33.8 (32.2-35.5) g/dl RDW Std Deviation 57.5 H (35.1-43.9) fL Plt Count 281 (163-337) K/mm3 MPV 11.9 (9.4-12.3) fl Neut % (Auto) 71.1 H (34.0-67.9) % Lymph % (Auto) 17.5 L (21.8-53.1) % [place] % (Auto) 8.8 (5.3-12.2) % Eos % (Auto) 2.1 (0.8-7.0) Baso % (Auto) 0.4 (0.1-1.2) % Neut # (Auto) 7.30 H (1.78-5.38) K/mm3 Lymph # (Auto) 1.80 (1.32-3.57) K/mm3 [place] # (Auto) 0.90 H (0.30-0.82) K/mm3 Eos # (Auto) 0.22 (0.04-0.54) K/mm3 Baso # (Auto) 0.04 (0.01-0.08) K/mm3 Manual Slide Review Normal smear PT 48.4 H (9.7-12.0) SECONDS INR 4.86 Sodium 138 (136-145) mEq/L Potassium 3.8 (3.5-5.1) mEq/L Chloride 104 (98-107) mEq/L Carbon Dioxide 22 (21-32) mEq/L Anion Gap 15.8 H (5-15) BUN 11 (7-18) mg/dL Creatinine 1.6 H (0.7-1.3) mg/dL Est Cr Clr Drug Dosing 48.55 mL/min Estimated GFR (MDRD) 43 (>60) mL/min BUN/Creatinine Ratio 6.9 L (14-18) Glucose 143 H (80-115) mg/dL Calcium 9.0 (8.5-10.1) mg/dL Total Bilirubin 1.3 H (0.2-1.0) mg/dL GGT (15-85) U/L AST 119 H (15-37) U/L ALT 53 (16-63) U/L Alkaline Phosphatase 95 (46-116) U/L Total Protein 7.5 (6.4-8.2) g/dl Albumin 3.6 (3.4-5.0) g/dl Globulin 3.9 gm/dL Albumin/Globulin Ratio 0.9 L (1-2) Triglycerides (<150) mg/dL Lipase 53633 H (73-393) U/L 06/18/19 06/19/19 06/19/19 Range/Units 16:54 07:52 07:52 WBC (4.23-9.07) K/mm3 RBC (4.63-6.08) M/mm3 Hgb (13.7-17.5) gm/dl Hct (40.1-51.0) % MCV (79.0-92.2) fl MCH (25.7-32.2) pg MCHC (32.2-35.5) g/dl RDW Std Deviation (35.1-43.9) fL Plt Count (163-337) K/mm3 MPV (9.4-12.3) fl Neut % (Auto) (34.0-67.9) % Lymph % (Auto) (21.8-53.1) % [place] % (Auto) (5.3-12.2) % Eos % (Auto) (0.8-7.0) Baso % (Auto) (0.1-1.2) % Neut # (Auto) (1.78-5.38) K/mm3 Lymph # (Auto) (1.32-3.57) K/mm3 [place] # (Auto) (0.30-0.82) K/mm3 Eos # (Auto) (0.04-0.54) K/mm3 Baso # (Auto) (0.01-0.08) K/mm3 Manual Slide Review PT 52.3 H* (9.7-12.0) SECONDS INR 5.27 H* Sodium 141 (136-145) mEq/L Potassium 3.9 (3.5-5.1) mEq/L Chloride 107 (98-107) mEq/L Carbon Dioxide 24 (21-32) mEq/L Anion Gap 13.9 (5-15) BUN 11 (7-18) mg/dL Creatinine 1.2 (0.7-1.3) mg/dL Est Cr Clr Drug Dosing 64.73 mL/min Estimated GFR (MDRD) 60 (>60) mL/min BUN/Creatinine Ratio 9.2 L (14-18) Glucose 94 (80-115) mg/dL Calcium 8.6 (8.5-10.1) mg/dL Total Bilirubin 0.5 (0.2-1.0) mg/dL GGT 213 H (15-85) U/L AST 78 H (15-37) U/L ALT 55 (16-63) U/L Alkaline Phosphatase 78 (46-116) U/L Total Protein 6.5 (6.4-8.2) g/dl Albumin 3.0 L (3.4-5.0) g/dl Globulin 3.5 gm/dL Albumin/Globulin Ratio 0.9 L (1-2) Triglycerides 146 (<150) mg/dL Lipase (73-393) U/L Meds: Medications Generic Name Dose Route Start Last Admin Trade Name Freq PRN Reason Stop Dose Admin Sodium Chloride 1,000 mls @ 150 mls/hr 06/18/19 16:30 06/18/19 17:03 Normal Saline IV 150 mls/hr ASDIRECTED KENDALL Administration Lactated Ringer's 1,000 mls @ 150 mls/hr 06/18/19 21:30 06/19/19 00:12 Ringers, Lactated IV 150 mls/hr ASDIRECTED KENDALL Administration Lactated Ringer's 1,000 mls @ 150 mls/hr 06/19/19 07:00 06/19/19 07:46 Ringers, Lactated IV 150 mls/hr ASDIRECTED KENDALL Administration Discontinued Medications Generic Name Dose Route Start Last Admin Trade Name Rickey PRN Reason Stop Dose Admin Al Hydroxide/Mg Hydroxide 30 0 ml 06/18/19 17:18 06/18/19 17:22 ml/ Lidocaine HCl 15 ml PO 06/18/19 17:19 45 ml ONETIME ONE Administration Diatrizoate Meglum/Diatrizoate Sod 120 ml 06/18/19 18:20 06/18/19 19:35 Gastrografin 37% PO 06/18/19 18:21 120 ml ONETIME ONE Administration Hydromorphone HCl 0.5 mg 06/18/19 16:29 06/18/19 17:01 Dilaudid IVPUSH 06/18/19 16:30 0.5 mg ONETIME ONE Administration Hydromorphone HCl 0.5 mg 06/18/19 21:22 06/18/19 21:30 Dilaudid IVPUSH 06/18/19 21:23 0.5 mg ONETIME ONE Administration Iopamidol 100 ml 06/18/19 18:20 06/18/19 19:35 Isovue-300 (61%) IVPUSH 06/18/19 18:21 Not Given ONETIME ONE Ondansetron HCl 4 mg 06/18/19 16:29 06/18/19 16:59 Zofran IVPUSH 06/18/19 16:30 4 mg ONETIME ONE Administration - Re-Assessments/Exams Free Text/Narrative Re-Assessment/Exam: 06/18/19 18:53 Patient's laboratory results were significant for a an INR of 4.86. His previous INR on 06/12 was 2.9. His goal INR is 2.5-3.5 so he is supratherapeutic. Creatinine is elevated at 1.6, AST is elevated at 119, and the patient's lipase is significantly elevated at 24,455. A CT scan of the abdomen and pelvis has been ordered. Free Text/Narrative Re-Assessment/Exam: 06/18/19 19:38 Dr. Jacques was consulted on pt for possible admission. She request that we complete the abdomen pelvis CT without IV contrast to visualize the pancreas. She verbalized that as long as there is no evidence of necrosis to the pancreas , she will admit the patient as an inpt for acute pancreatits. She also requested that we order a repeat u/s of the RUQ and add a triglyceride; however these tests do not need to be resulted prior to admission. 06/18/19 20:03 converting technician advised that to get the best imaging of the abdomen ultrasound we should wait 4-8 hours after oral contrast was given. Discussed this with Dr. Jacques. She states that it is okay to wait until morning to complete the ultrasound of the right upper quadrant. 06/18/19 21:23 CT of the abdomen showed: -questionable gallbladder wall thickening with slight dense material layering the gallbladder -mildly prominent rounded density in the region of the pancreatic ampulla measuring 1.5 cm x 1.6 cm Results were reviewed with Dr. Jacques who feels the patient may be developing an abscess on his pancreas or have biliary obstruction and may require ERCP. I did call [facility] and spoke with GI Dr. Layne. He agreed that the patient does need to be transferred, however they do not have any open beds at this time at [facility]. Dr. Layne advised the patient needs "a boatload of fluids "through the night and that that could be done either in our ER or at [facility] in [place]. Discussed with the one call nurse Ángela. She asked if we are comfortable keeping the patient in the emergency department to receive fluids through the night and transfer in the morning when a bed becomes available. Discussed this with Dr. Mauro who was in agreement with this plan. patient is reluctant to transfer to [place] via EMS, however Dr. Layne feels that this is a necessity. Patient has agreed to stay in the emergency department through the night to receive fluids and pain management as needed however he is not sure that he will agree to an ambulance transfer in the morning. He states that he probably just had his take him. I advised the patient that we will discuss this in the morning once a bed becomes available. He denied any significant abdominal pain at this time. States if feels like he "has indigestion". He did complain that he is restless legs are starting to act up and that he normally takes half an oxycodone at night as well as gabapentin. I have ordered his IV fluids to be switched to lactated Ringer's at 150 mls/hour as well as an additional dose of Dilaudid 0.5 mg IV. Care is transferred to Dr. Mauro at this time. 06/19/19 07:[address] Mckeon at this time. Patient did well during the night and did not require any additional pain medications. He does continue to have lactated Ringer's infusing at 150 mls/hour. He will have the right upper quadrant ultrasound completed here this morning. I will call [facility] to check on the status of the bed. The patient did verbalize that he will not take the ambulance to [place] and that he will have his drive him. I did educate him that it is a medical recommendation that he goes by ambulance and the associated risks including increased pain, hemodynamic instability, or even possibly ; however he is not willing to go by ambulance. I will update Serafin Trejo of this. 06/19/19 07:41 Call [facility] spoke with one call nurse Justyn. He did contact the hospitalist Dr. Gonzalez. She did except care pending a bed opening up. She requested that we repeat a CMP and INR keep the patient nothing by mouth. She also was in agreement that we should do the right upper quadrant ultrasound. She requested that she be updated if there anything abnormal shows on this ultrasound. One call nurse Justyn verbalized that he will call us when he knows that a bed is opening up and we can initiate transfer at that point. I did update Dr. Gonzalez of the patient is refusing to go by EMS. 06/19/19 10:24 I did contact one call nurse Justyn for an update on bed status. He did state they don't have an open bed as of yet however they are "starting to move presents as we speak. He will notify us as soon as he has a bed for the patient. I did update the patient and family. Repeat ultrasound did show sludge in the gallbladder as well as minimal areas of scattered gall bladder wall thickening. No ductal dilation was seen. The patient's INR today did increase to 5.27 from 4.86 yesterday patient stated that he last took his Coumadin yesterday morning. ALT decreased to 78 ALT increased at 55. We did check a GGT which was 213. This information will be included in the patient's transfer packet once a bed opens up for him. 06/19/19 10:58 Phone call received from Justyn HAAS at [facility]. They do have an open bed for the patient at this time. 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 Appropriate AGAINST MEDICAL ADVICE paperwork was signed with regard to the transfer. His IV will be left in place and wrapped for the transfer he was advised to go directly to [facility] and to eat or drink nothing. A transfer packet will be sent with the patient. Patient was having no pain at the time of departure. Departure - Departure Time of Disposition: 10:58 Disposition: DC/Tfer to [facility] 02 Condition: Fair Clinical Impression: Pancreatitis Qualifiers: Chronicity: acute Pancreatitis type: unspecified pancreatitis type Acute pancreatitis complication: unspecified Qualified Code(s): K85.90 - Acute pancreatitis without necrosis or infection, unspecified - Discharge Information *PRESCRIPTION DRUG MONITORING PROGRAM REVIEWED*: No *COPY OF PRESCRIPTION DRUG MONITORING REPORT IN PATIENT KAYLIN: No Referrals: Nicholas Donaldson MD [Primary Care Provider] - Forms: ED Department Discharge Additional Instructions: Admission has been arranged for you to [facility]. We recommend that you go by ambulance for the transfer however U did refuse this option and will transfer via private vehicle. Go directly to [facility] and check in at the front desk monitor. You'll be a direct admission under Dr. Gonzalez. Do not eat or drink anything in enroute. If you experience any medical difficulties during the transfer to [place] we recommend that you seek medical assistance by calling 911. - My Orders Last 24 Hours: My Active Orders 06/18/19 16:30 Sodium Chloride 0.9% [Normal Saline] 1,000 ml IV ASDIRECTED 06/18/19 21:30 Lactated Ringers [Ringers, Lactated] 1,000 ml IV ASDIRECTED 06/19/19 07:00 Lactated Ringers [Ringers, Lactated] 1,000 ml IV ASDIRECTED - Assessment/Plan Last 24 Hours: My Active Orders 06/18/19 16:30 Sodium Chloride 0.9% [Normal Saline] 1,000 ml IV ASDIRECTED 06/18/19 21:30 Lactated Ringers [Ringers, Lactated] 1,000 ml IV ASDIRECTED 06/19/19 07:00 Lactated Ringers [Ringers, Lactated] 1,000 ml IV ASDIRECTED
[2019-06-18] MEDS ORDERED: Alum Hydrox/Mag Hydrox/Simeth 30 ML, Lidocaine 2% 15 ML PO ONE ×2 (17:18)
[2019-06-18] MEDS ORDERED: Diatrizoate Meglumine/Diatrizoate Sodium 37% 120 ML Bottle PO ONE (18:20)
[2019-06-18] MEDS ORDERED: Iopamidol 612 MG/ML 100 ML Bottle IVPUSH ONE (18:20)
[2019-06-18] MEDS ORDERED: Lactated Ringers 1,000 ML IV SCH (21:30)
[2019-06-19] MEDS ORDERED: Lactated Ringers 1,000 ML IV SCH (07:00)
--- NOTE | 2019-06-19 09:06 | US ---
Limited abdominal ultrasound: Multiple real-time images were obtained of the right upper abdomen. Comparison: Previous CT abdomen and pelvis exam performed earlier on the same day (7:32 PM). Previous abdominal ultrasound of 06/15/19 is also available. Liver shows no focal parenchymal abnormality. Gallbladder filled with sludge. No shadowing gallstones are seen. Gallbladder wall shows mild areas of thickening. No biliary duct dilatation is seen. Impression: 1. Sludge within the gallbladder which is an interval change. 2. Minimal areas of scattered gallbladder wall thickening is seen also an interval change. 3. No biliary duct dilatation is seen. Diagnostic code #2 This report was dictated in [place] Standard Time
--- NOTE | 2019-06-19 10:18 | CT ---
CT abdomen and pelvis Technique: Multiple axial sections were obtained from above the dome of the diaphragm inferiorly through the pubic symphysis. Intravenous contrast not utilized. Oral contrast has been given. Comparison: Previous CT abdomen and pelvis exam of 03/17/12. Findings: Visualized lung bases show nothing acute. Noncontrast appearance of the liver shows no focal abnormality. Spleen also appears within normal limits. Adrenal glands show no nodule. Gallbladder shows no calcified gallstones. Mild sludge is present. Pancreas appears within normal limits. Two small nonobstructing stones are noted within the upper right kidney. No abnormal calcifications seen within the left kidney. No abnormal calcification seen along the course of the ureters. Atherosclerotic calcification noted within the aorta and branch vessels. Inferior vena cava filter is present. Aorta shows no aneurysm. No retroperitoneal adenopathy or mesenteric abnormalities are seen. Appendix is seen and is normal in size. No pelvic mass or adenopathy is seen. Artifact is noted from left hip prosthesis. Degenerative change scattered within the lumbar spine. Impression: 1. Mild amount of sludge within the gallbladder. 2. Other findings which are felt to be incidental. 3. Nothing acute is appreciated on CT study of the abdomen and pelvis. Diagnostic code #2 This report was dictated in [place] Standard Time I mostly agree with preliminary report issued by [facility] (pancreas felt to be within normal limits for noncontrast exam) ([facility] report finalized on 06/18/19, 9:17 PM Central Time)
[2019-06-19 11:15] VITALS: BP 150/83; PULSE 96
== END 2019-06-19 11:10 ==
LOC: JD.ED 15:58
DX: K85.90 Acute pancreatitis without necrosis or infection, unspecified (principal); K21.9 Gastro-esophageal reflux disease without esophagitis; I25.10 Atherosclerotic heart disease of native coronary artery without angina pectoris; I10 Essential (primary) hypertension; Z79.01 Long term (current) use of anticoagulants; F17.200 Nicotine dependence, unspecified, uncomplicated; Z88.8 Allergy status to other drugs, medicaments and biological substances; Z91.013 Allergy to seafood; Z79.899 Other long term (current) drug therapy; Z95.5 Presence of coronary angioplasty implant and graft
CPT/HCPCS: 36415; 74177; 76705; 80053; 82977; 83690; 84478; 85025; 85610; 96361; 96374; 96375; 96376; 99285; A9270; J1170; J2405; J7030; J7120; Q9963; 99284

== ENCOUNTER 2020-12-17 07:33 | Day surgery (SDC) | payer MEDICARE, OTHER ==
[~2020-12-17 07:33] MED LIST: Lactated Ringers 1,000 ML IV SCH; Lidocaine 1%/Sod Bicarbonate in NS 8.4% 1 ML Syringe IDERM PRN; Sodium Chloride 0.9% 10 ML Syringe FLUSH PRN
[2020-12-17] MEDS ORDERED: Albuterol 0.083% 2.5 MG/3 ML Neb Soln NEB ONE (08:02)
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
[2020-12-17] MEDS ORDERED: fentaNYL 100 MCG/2 ML SDV ONE (08:45)
[2020-12-17] MEDS ORDERED: Sodium Chloride 0.9% 10 ML Syringe FLUSH PRN (08:58)
[2020-12-17] MEDS ORDERED: Lidocaine 1%/Sod Bicarbonate in NS 8.4% 1 ML Syringe IDERM PRN (08:58)
[2020-12-17] MEDS ORDERED: Propofol 200 MG/20 ML SDV ONE ×5 (08:59→10:00)
[2020-12-17] MEDS ORDERED: Lactated Ringers 1,000 ML IV SCH (09:00)
[2020-12-17] MEDS ORDERED: Lidocaine 1% 4 ML ONE (09:00)
[2020-12-17] MEDS ORDERED: Lactated Ringers 1,000 ML ONE (10:05)
--- NOTE | 2020-12-17 10:39 | PCM.OPNOTE ---
- General Post-Op/Procedure Note Date of Surgery/Procedure: 12/17/20 Operative Procedure(s): EGD and colonoscopy Findings: 1. Bile reflux 2. Gastritis 3. Polypoid gastric mucosa 4. Irregular GE junction 5. Duodenal polyps 6. Colon polyps 7. Friable tissue in cecum and ascending colon Pre Op Diagnosis: Epigastric pain, reflux, history of adenomatous colon polyps Post-Op Diagnosis: same Anesthesia Technique: MAC Primary Surgeon: Jennifer Lin Anesthesia Provider: Chula Gaytan Pathology: 1. Duodenal polyps x2 2. Gastric antrum 3. Gastric Fundus biopsy 4. GE junction biopsy 5. Cecum and ascending colon biopsy 6. Ascending colon polyp 7. Hepatic flexure polyp 7. Transverse colon polyp >1cm x2 9. Transverse colon polyp x 6 Fluid Replacement, Intraop: 1,200 Output, Urine Amount: 0 EBL in mLs: 0 Complications: none apparent Condition: Good
--- NOTE | 2020-12-17 10:40 | PCM48HPAN ---
Post Anesthesia Note - EVALUATION WITHIN 48HRS OF ANESTHETIC Vital Signs in Normal Range: Yes Patient Participated in Evaluation: Yes Respiratory Function Stable: Yes Airway Patent: Yes Cardiovascular Function Stable: Yes Hydration Status Stable: Yes Pain Control Satisfactory: Yes Nausea and Vomiting Control Satisfactory: Yes Mental Status Recovered: Yes Vital Signs: Last Vital Signs Temp 98.1 F 12/17/20 07:40 Pulse 74 12/17/20 07:40 Resp 18 12/17/20 07:40 BP 154/71 H 12/17/20 07:40 Pulse Ox 93 L 12/17/20 08:02 Phase II Vital Signs at 1030: BP: 112/75 HR: 69 RR: 16 Temp: 97.4 O2 sat: 94% RA
--- NOTE | 2020-12-17 10:44 | PCM.PRNOTE ---
- Free Text/Narrative Note: Operative Report Date of Procedure: December 17, 2020 Pre Op Diagnosis: Epigastric pain, reflux, history of adenomatous colon polyps Post-Op Diagnosis: Same Operative Procedures: 1. EGD with biopsy 2. Colonoscopy to the cecum Primary Surgeon: Jennifer Lin MD Anesthesia Provider: Chula Gaytan CRNA Anesthesia Technique: MAC IV Fluid Replacement, Intraop: 1200cc crystalloid Output, Urine Amount: 0cc EBL in mLs: 0cc Findings: 1. Bile reflux 2. Gastritis 3. Polypoid gastric mucosa 4. Irregular GE junction 5. Duodenal polyps 6. Colon polyps 7. Friable tissue in cecum and ascending colon 8. Unretrieved colon polyps Specimens: 1. Duodenal polyps x2 2. Gastric antrum 3. Gastric Fundus biopsy 4. GE junction biopsy 5. Cecum and ascending colon biopsy 6. Ascending colon polyp 7. Hepatic flexure polyp 8. Transverse colon polyp >1cm x2 9. Transverse colon polyp x 6 Drain/Tubes: None Indication: The patient is a 70-year-old gentleman who presented to the clinic with history of significant acid reflux and adenomatous colon polyps. The patient reported symptoms of epigastric pain, as well as continued acid reflux. The patient was consented for a diagnostic EGD and surveillance colonoscopy. Risks of bleeding, and perforation were discussed, and the patient agreed to the risks and wished to proceed. Description of the procedure: The patient was taken back to the endoscopy suite, and placed in the left lateral decubitus position. A bite block was placed. The patient was sedated with MAC anesthesia. The Olympus video endoscope was inserted into the oropharynx and guided under direct vision into the esophagus, stomach, and duodenum. The duodenal bulb and second portion of the duodenum were remarkable for polyps, 2 of these were removed with a cold biopsy forceps. The gastric antrum was inspected and cold biopsy forceps were used to take tissue samples for H. pylori. There was linear erythematous tissue in this area consistent with gastritis. The scope was withdrawn to the stomach and retroflexed. There was bilious fluid and residue present in the antrum consistent with bile reflux. There were polypoid mucosal changes noted in the body of the stomach. The fundus was biopsied for this tissue using a cold biopsy forceps. No erosions or ulcers were noted. The scope was withdrawn to the esophagus. An irregular Z- line was noted, biopsies were taken in 4 quadrants using a cold biopsy forceps. The endoscope was then withdrawn. Next, anorectal examination was performed. No lesions, masses or hemorrhoids were noted externally or on palpation. The scope was placed into the rectum and advanced to cecum. Upon reaching the cecum, and the patients cecum was entered. There was minimal tortuosity of the colon. The ileocecal valve was well visualized and the appendiceal orifice identified. At this point, the scope was slowly withdrawn, paying attention to the mucosa. The patient had good bowel prep, 85-95% of the mucosa was visible. Friable mucosa was noted in the cecum and ascending colon that was easy to bleed without any direct contact, biopsies were taken of this tissue using cold biopsy forceps. The patient had multiple sessile polyps noted in the colon. A 4 mm flat polyp was removed from the ascending colon using a jumbo cold biopsy forceps. In the hepatic flexure, a 6 mm sessile polyp was removed using a jumbo cold biopsy forceps. In the transverse colon the patient had a grouping of polyps with 2 polyps close together that were greater than 1 cm. These were removed in piecemeal fashion using a jumbo cold biopsy forceps. The area was marked with a tattoo for reevaluation at a later time. Additionally 6 other polyps removed from the tr ansverse colon ranging from 3 to 5 mm and were sessile. The patient was continued on anticoagulation with Lovenox at this time. The total polyp count for removal was high enough with the patient's full anticoagulation that additional polypectomies were not attempted on this colonoscopy. Additional polyps were then noted on withdrawal of the scope throughout the left side of the colon and rectum. In the rectum, scope was retroflexed and some normal- appearing hemorrhoidal tissue was noted. The scope was placed back in the lumen and excess air was aspirated. The scope was removed. The patient tolerated the procedure very well. Complications: None apparent Condition: The patient was transported to PACU in stable condition. Jennifer Lni MD General Surgery
[2020-12-17 11:24] VITALS: BP 134/63; PULSE 60
== END 2020-12-17 11:18 | disposition home or self-care (01) ==
LOC: JD.SDS 07:33
PROVIDERS: ATTEND Surgery
DX: Z12.11 Encounter for screening for malignant neoplasm of colon (principal); D12.3 Benign neoplasm of transverse colon; D12.2 Benign neoplasm of ascending colon; K29.70 Gastritis, unspecified, without bleeding; K31.7 Polyp of stomach and duodenum; K22.8 Other specified diseases of esophagus; K64.9 Unspecified hemorrhoids; K31.89 Other diseases of stomach and duodenum; K21.00 Gastro-esophageal reflux disease with esophagitis, without bleeding; I10 Essential (primary) hypertension; E78.1 Pure hyperglyceridemia; I48.0 Paroxysmal atrial fibrillation; Z98.890 Other specified postprocedural states; Z79.899 Other long term (current) drug therapy; Z88.8 Allergy status to other drugs, medicaments and biological substances; Z91.013 Allergy to seafood; Z90.49 Acquired absence of other specified parts of digestive tract; Z79.01 Long term (current) use of anticoagulants; F17.210 Nicotine dependence, cigarettes, uncomplicated
CPT/HCPCS: 36415; 43239; 45380; 85610; 88305; 94640; J2704; J3010; J7120; 00813; 99100

== ENCOUNTER 2021-12-30 06:57 | Day surgery (SDC) | payer MEDICARE, OTHER ==
[~2021-12-30 06:57] MED LIST changes: +Sodium Chloride 0.9% 10 ML Syringe FLUSH SCH
[2021-12-30] MEDS ORDERED: Propofol 200 MG/20 ML SDV ONE ×7 (07:13→09:26)
[2021-12-30] MEDS ORDERED: Lidocaine 1% 6 ML ONE (07:13)
[2021-12-30] MEDS ORDERED: Ondansetron 4 MG/2 ML SDV IVPUSH PRN (09:41)
[2021-12-30] MEDS ORDERED: HYDROmorphone 0.5 MG/0.5 ML Syringe IVPUSH PRN (09:41)
[2021-12-30] MEDS ORDERED: fentaNYL 100 MCG/2 ML SDV IVPUSH PRN (09:41)
[2021-12-30 10:54] VITALS: BP 148/71; PULSE 71
== END 2021-12-30 10:36 | disposition home or self-care (01) ==
LOC: JD.SDS 06:57
PROVIDERS: ATTEND Surgery
DX: Z12.11 Encounter for screening for malignant neoplasm of colon (principal); D12.0 Benign neoplasm of cecum; D12.3 Benign neoplasm of transverse colon; D12.5 Benign neoplasm of sigmoid colon; K64.8 Other hemorrhoids; K52.9 Noninfective gastroenteritis and colitis, unspecified; K21.00 Gastro-esophageal reflux disease with esophagitis, without bleeding; E78.1 Pure hyperglyceridemia; I10 Essential (primary) hypertension; I48.0 Paroxysmal atrial fibrillation; I25.10 Atherosclerotic heart disease of native coronary artery without angina pectoris; H54.7 Unspecified visual loss; F17.210 Nicotine dependence, cigarettes, uncomplicated; Z88.8 Allergy status to other drugs, medicaments and biological substances; Z88.2 Allergy status to sulfonamides; Z91.013 Allergy to seafood; Z95.0 Presence of cardiac pacemaker; Z86.718 Personal history of other venous thrombosis and embolism; Z79.01 Long term (current) use of anticoagulants; Z79.899 Other long term (current) drug therapy
CPT/HCPCS: 36415; 45380; 45385; 85610; 85730; J2704; J7120; 00812; 99100

== ENCOUNTER 2022-05-02 10:18 | Emergency (ER) | payer MEDICARE, OTHER ==
[2022-05-02 12:17] VITALS: BP 136/84; PULSE 80
[2022-05-02] MEDS ORDERED: Sodium Chloride 0.9% 10 ML Syringe FLUSH PRN (12:24)
[2022-05-02 15:31] LABS: CORONAVIRUS COVID-19 NAA NEGATIVE (NEGATIVE)
== END 2022-05-02 16:45 | disposition home or self-care (01) ==
LOC: JD.ED 10:18
DX: M54.6 Pain in thoracic spine (principal); R79.1 Abnormal coagulation profile; I48.91 Unspecified atrial fibrillation; I10 Essential (primary) hypertension; Z88.8 Allergy status to other drugs, medicaments and biological substances; Z91.013 Allergy to seafood; Z79.01 Long term (current) use of anticoagulants; Z79.899 Other long term (current) drug therapy; Z20.822 Contact with and (suspected) exposure to COVID-19
CPT/HCPCS: 0240U; 36415; 71045; 80053; 83735; 83880; 84484; 85025; 85379; 85610; 85730; 93005; 99284; 93010

== ENCOUNTER 2022-05-16 12:30 | Emergency (ER) | payer MEDICARE, OTHER ==
[2022-05-16 12:49] VITALS: PULSE 72
[2022-05-16] MEDS ORDERED: Sodium Chloride 0.9% 1,000 ML IV SCH (13:00)
[2022-05-16] MEDS ORDERED: Aspirin 81 MG Tab.Chew PO ONE (13:01)
[2022-05-16] MEDS: Nitroglycerin 0.4 MG Tab.SL SL PRN ×2 (13:13→13:23)
[2022-05-16 13:23] VITALS: BP 100/57
[2022-05-16] MEDS ORDERED: Morphine 2 MG/ML SYRINGE IVPUSH ONE ×3 (13:25→14:40)
[2022-05-16] MEDS ORDERED: Heparin Sodium 5,000 Units/ML Vial IVPUSH ONE (13:26)
[2022-05-16] MEDS ORDERED: Heparin Sodium/D5W 25,000 UNITS/500 ML BAG IV SCH ×2 (13:30→14:15)
[2022-05-16] MEDS ORDERED: Morphine 2 MG/ML SYRINGE ONE (14:42)
== END 2022-05-16 15:56 ==
LOC: JD.ED 12:30
DX: I21.4 Non-ST elevation (NSTEMI) myocardial infarction (principal); F17.210 Nicotine dependence, cigarettes, uncomplicated; Z88.8 Allergy status to other drugs, medicaments and biological substances; Z91.013 Allergy to seafood; Z88.6 Allergy status to analgesic agent; Z79.899 Other long term (current) drug therapy; Z79.01 Long term (current) use of anticoagulants; Z79.82 Long term (current) use of aspirin; Z90.49 Acquired absence of other specified parts of digestive tract
CPT/HCPCS: 36415; 71045; 80053; 83880; 84484; 85025; 85610; 85730; 93005; 96374; 96375; 96376; 99285; A9270; J1644; J2270; J7030

== ENCOUNTER 2023-10-06 10:30 | Emergency (ER) | payer MEDICARE, OTHER ==
[2023-10-06 11:35] LABS: BASOPHILS ABSOLUTE AUTO 0.1 K/mm3 (0.0-0.2); BASOPHILS PERCENT AUTO 1.3 % (0.0-1.0); EOSINOPHILS ABSOLUTE AUTO 0.2 K/mm3 (0.0-0.4); EOSINOPHILS PERCENT AUTO 3.2 % (0.0-6.0); HEMATOCRIT 23.7 % (42.0-52.0); IMMATURE GRAN ABSOLUTE AUTO 0.02 K/mm3 (0.00-0.05); IMMATURE GRAN PERCENT AUTO 0.3 % (0.0-0.4); LYMPHOCYTES ABSOLUTE AUTO 2.1 K/mm3 (1.0-4.8); LYMPHOCYTES PERCENT AUTO 29.8 % (24.0-44.0); MEAN CORPUSCULAR HEMOGLOBIN 29.6 pg (28.0-32.0); MEAN CORPUSCULAR HGB CONC 30.8 g/dl (32.0-36.0); MEAN PLATELET VOLUME 10.6 fl (9.4-12.4); MONOCYTES ABSOLUTE AUTO 0.7 K/mm3 (0.0-0.8); MONOCYTES PERCENT AUTO 9.4 % (0.0-8.0); PLATELET COUNT,PLT 457 K/mm3 (150-400); RED BLOOD CELL COUNT 2.47 M/mm3 (4.52-5.90); WHITE BLOOD CELL COUNT,WBC 7.12 K/mm3 (3.9-11.3)
[2023-10-06 11:41] LABS: HEMOGLOBIN 7.3 gm/dl (14.0-18.0)
[2023-10-06 11:51] LABS: INR 2.39
[2023-10-06 11:54] LABS: A/G RATIO 0.8 (1-2); ALBUMIN 2.9 g/dl (3.4-5.0); ANION GAP 13.9 (5-15); BILIRUBIN TOTAL 0.5 mg/dL (0.2-1.0); BUN/CREATININE RATIO 11.4 (14-18); C-REACTIVE PROTEIN 1.37 mg/dL (<0.30); CALCIUM 9.1 mg/dL (8.5-10.1); CREATININE 1.4 mg/dL (0.7-1.3); EST CRCL DRUG DOSING (CG) 53.82 mL/min; POTASSIUM,K 3.9 mEq/L (3.5-5.1); PROTEIN TOTAL,TP 6.7 g/dl (6.4-8.2)
[2023-10-06] MEDS: Sodium Chloride 0.9% 10 ML Syringe FLUSH PRN (12:24)
[2023-10-06 12:27] LABS: IRON,FE 113 ug/dL (65-175); PERCENT FE SATURATION 29 % (20-55); TRANSFERRIN 317 mg/dL (202-364)
[2023-10-06 12:30] LABS: TOTAL IRON BINDING CAPACITY 396 ug/dL (100-400)
[2023-10-06] MEDS: Sodium Chloride 0.9% 500 ML IV ONE (13:05)
[2023-10-06 15:23] VITALS: PULSE 65
[2023-10-06 16:48] VITALS: BP 115/87
== END 2023-10-06 16:20 | disposition home or self-care (01) ==
LOC: JD.ED 10:30
DX: D64.9 Anemia, unspecified (principal); I10 Essential (primary) hypertension; I25.2 Old myocardial infarction; Z91.013 Allergy to seafood; Z88.8 Allergy status to other drugs, medicaments and biological substances; Z90.49 Acquired absence of other specified parts of digestive tract; Z79.01 Long term (current) use of anticoagulants; Z79.899 Other long term (current) drug therapy
CPT/HCPCS: 36415; 36430; 80053; 83540; 84466; 85025; 85610; 86140; 86850; 86900; 86901; 86922; 93005; 93010; 99282; 99284; J3490; J7030; P9016

== ENCOUNTER 2024-03-15 08:51 | Emergency (ER) | payer MEDICARE, OTHER ==
[2024-03-15] MEDS: Sodium Chloride 0.9% 10 ML Syringe FLUSH PRN (09:53)
[2024-03-15] MEDS: Bumetanide 1 MG/4 ML MDV IVPUSH ONE ×2 (09:53→13:30)
[2024-03-15 10:06] LABS: BASOPHILS ABSOLUTE AUTO 0.1 K/mm3 (0.0-0.2); BASOPHILS PERCENT AUTO 1.2 % (0.0-1.0); EOSINOPHILS ABSOLUTE AUTO 0.1 K/mm3 (0.0-0.4); EOSINOPHILS PERCENT AUTO 1.1 % (0.0-6.0); HEMATOCRIT 37.2 % (42.0-52.0); IMMATURE GRAN ABSOLUTE AUTO 0.03 K/mm3 (0.00-0.05); IMMATURE GRAN PERCENT AUTO 0.4 % (0.0-0.4); LYMPHOCYTES ABSOLUTE AUTO 1.6 K/mm3 (1.0-4.8); MEAN CORPUSCULAR HEMOGLOBIN 26.9 pg (28.0-32.0); MEAN CORPUSCULAR HGB CONC 31.7 g/dl (32.0-36.0); MEAN PLATELET VOLUME 11.8 fl (9.4-12.4); MONOCYTES ABSOLUTE AUTO 0.4 K/mm3 (0.0-0.8); MONOCYTES PERCENT AUTO 5.6 % (0.0-8.0); NEUTROPHILS ABSOLUTE AUTO 5.1 K/mm3 (1.8-7.7); NEUTROPHILS PERCENT AUTO 69.7 % (41.0-71.0); RED BLOOD CELL COUNT 4.38 M/mm3 (4.52-5.90); WHITE BLOOD CELL COUNT,WBC 7.26 K/mm3 (3.9-11.3)
[2024-03-15 10:07] LABS: HEMOGLOBIN 11.8 gm/dl (14.0-18.0); MEAN CORPUSCULAR VOLUME 84.9 fl (83.0-99.0); PLATELET COUNT,PLT 340 K/mm3 (150-400)
[2024-03-15 10:25] LABS: A/G RATIO 0.8 (1-2); ALBUMIN 3.4 g/dl (3.4-5.0); ANION GAP 16.7 (5-15); BILIRUBIN TOTAL 1.8 mg/dL (0.2-1.0); BUN/CREATININE RATIO 9.5 (14-18); CALCIUM 9.4 mg/dL (8.5-10.1); EST CRCL DRUG DOSING (CG) 37.68 mL/min; POTASSIUM,K 3.7 mEq/L (3.5-5.1); PROTEIN TOTAL,TP 7.8 g/dl (6.4-8.2)
[2024-03-15 11:08] LABS: INR 1.49; PROTHROMBIN TIME 15.4 SECONDS (9.7-12.0)
[2024-03-15 18:24] VITALS: BP 96/58; PULSE 83
== END 2024-03-15 18:20 | disposition home or self-care (01) ==
LOC: JD.ED 08:51
DX: I11.0 Hypertensive heart disease with heart failure (principal); I50.9 Heart failure, unspecified; N28.9 Disorder of kidney and ureter, unspecified; K21.9 Gastro-esophageal reflux disease without esophagitis; Z90.49 Acquired absence of other specified parts of digestive tract; F17.210 Nicotine dependence, cigarettes, uncomplicated; Z79.899 Other long term (current) drug therapy; Z91.048 Other nonmedicinal substance allergy status; Z91.013 Allergy to seafood; Z88.8 Allergy status to other drugs, medicaments and biological substances
CPT/HCPCS: 36415; 71045; 71045-26; 71250; 71250-26; 80053; 83880; 84484; 85025; 85610; 93005; 93010; 96374; 96376; 99283; 99285-25; J3490